=== PATIENT | male | born 2000 | race Caucasian/White ===

== ENCOUNTER 2022-05-05 20:38 | Emergency (ER) | payer OTHER ==
[2022-05-05] MEDS: Ibuprofen 200 MG Tab PO STA (20:55)
[2022-05-05 21:29] LABS: STREP A BY PCR NOT DETECTED (NOT DETECT)
[2022-05-05 21:42] LABS: CORONAVIRUS COVID-19 NAA NEGATIVE (NEGATIVE)
== END 2022-05-05 22:07 | disposition home or self-care (01) ==
LOC: VM.ED 20:38
DX: B34.9 Viral infection, unspecified (principal); Z20.822 Contact with and (suspected) exposure to COVID-19
CPT/HCPCS: 0240U; 87651-QW; 99283; A9270-GY